=== PATIENT | female | born 1975 | race Caucasian/White ===

== ENCOUNTER 2025-04-24 10:25 | Outpatient (CLI) | payer BC, SELFPAY ==
[2025-04-25 18:05] LABS: HPV Source Cervix
== END 2025-04-24 10:26 | disposition home or self-care (01) ==
PROVIDERS: Visit Provider Physician Assistant
DX: Z12.4 Encounter for screening for malignant neoplasm of cervix (principal); Z11.51 Encounter for screening for human papillomavirus (HPV)
CPT/HCPCS: 87624; 87625; 88141; 88142

== ENCOUNTER 2025-05-08 08:00 | Outpatient (CLI) | payer BC, SELFPAY ==
--- NOTE | 2025-05-08 08:15 | CRLHL7_ITS ---
For Patients: As a result of the Century Cures Act, medical imaging exams and procedure reports are released immediately into your electronic medical record. You may view this report before your referring provider. If you have questions, please contact your health care provider. INDICATION: Abnormal uterine and vaginal bleeding COMPARISON: None. TECHNIQUE: 2D colindres-scale and color Doppler images were acquired of the pelvis using a transabdominal and transvaginal approach. Transvaginal imaging performed to better visualize the endometrial stripe and ovaries. FINDINGS: Left fundal intramural fibroid measures 1.9 x 1.6 x 1.9 cm. Uterus measures 8.4 cm in length by 3.3 cm in AP diameter by 4.5 cm in transverse dimension. The endometrium measures 4 millimeters. Hyperechoic focus associated with the endometrium measures 5 x 3 x 4 millimeters. No endometrial fluid. The right ovary measures 2.9 x 1.8 x 2.6 cm in size and the left ovary measures 3.2 x 2.0 x 2.3 cm. The ovaries demonstrate normal arterial and venous blood flow on color Doppler analysis. There are no suspicious fluid collections within the cul-de-sac. Benign cyst within the right ovary is present which measures 1.6 cm. Thin curvilinear septations noted without internal blood flow. IMPRESSION: Endometrial thickness 4 millimeters. A possible endometrial polyp measuring 5 millimeters. Benign right ovarian cyst measures 1.6 cm. Left fundal intramural fibroid measures 1.9 cm. Dictated by Trip Nix MD @ 05/08/2025 12:45:45 PM (Electronically Signed)
== END 2025-05-08 08:01 | disposition home or self-care (01) ==
LOC: US 08:00
PROVIDERS: Visit Provider Obstetrics & Gynecology
DX: N93.9 Abnormal uterine and vaginal bleeding, unspecified (principal); R93.89 Abnormal findings on diagnostic imaging of other specified body structures; N83.201 Unspecified ovarian cyst, right side; D25.1 Intramural leiomyoma of uterus
CPT/HCPCS: 76830; 76856

== ENCOUNTER 2025-06-29 08:48 | Outpatient (CLI) | payer BC, SELFPAY | END 2025-06-29 08:49 | disposition home or self-care (01) | PROVIDERS: PCP Family Medicine; Visit Provider Family Medicine | DX: Z01.818 Encounter for other preprocedural examination (principal); R73.03 Prediabetes | CPT/HCPCS: 80048; 80061; 85025 ==

== ENCOUNTER 2025-07-11 06:01 | Day surgery (SDC) | payer BC, SELFPAY ==
[2025-07-11 06:25] VITALS: BP 177/104; PULSE 80; RESP 20; TEMP 36.8; O2SAT 95
[2025-07-11 06:26] VITALS: BMI 50.1
[2025-07-11 06:37] LABS: Ur HCG Qualitative* Negative (Negative)
[2025-07-11 06:39] LABS: Hemoglobin* 13.8 gm/dL (12.0-16.0)
[2025-07-11] MEDS: LACTATED RINGERS 500 ML 500 ML 100 ML IV (06:40)
[2025-07-11] MEDS: SODIUM CHLORIDE 0.9 % (FLUSH) 10 ML SYRINGE IVF (06:44)
--- NOTE | 2025-07-11 07:11 | W.PM.H&PU ---
History & Physical Update History & Physical Update H&P Reviewed and patient assessed: No changes noted
[2025-07-11] MEDS: BUPIVACAINE 0.5% 30 ML INJECTION (07:47)
--- NOTE | 2025-07-11 07:49 | P.ANES_ITS ---
Anesthesia Charges Start Date/Time Anesthesia Start Date: 07/11/25 Anesthesia Start Time: 07:20 Stop Date/Time Anesthesia Stop Date: 07/11/25 Anesthesia Stop Time: 08:08 Coding CPT Codes CPT Codes: ANESTH HYSTEROSCOPE/GRAPH - 92878 ([id number]) P3 - PATIENT W/SEVERE SYS DISEASE, QK - PNEUMATIC SYSTEMS OPERATOR 2-4 CNCRNT ANES PROC, QX - RN HOME CARE SVC W/ MD MED DIRECTION
--- NOTE | 2025-07-11 07:49 | W.ANESCHARGE ---
Anesthesia Charges Start Date/Time Anesthesia Start Date: 07/11/25 Anesthesia Start Time: 07:20 Stop Date/Time Anesthesia Stop Date: 07/11/25 Anesthesia Stop Time: 08:08 Coding CPT Codes CPT Codes: ANESTH HYSTEROSCOPE/GRAPH - 68640 ([id number]) P3 - PATIENT W/SEVERE SYS DISEASE, QK - SCHOOL LIBRARY MEDIA SPECIALIST 2-4 CNCRNT ANES PROC, QX - FINISH MACHINE TENDER SVC W/ MD MED DIRECTION
--- NOTE | 2025-07-11 08:01 | P.GYNPRC_ITS ---
Procedure Note Date of procedure: 07/11/25 Will [facility] bill your pro fee for this procedure?: Yes Pre-op diagnosis: Abnormal uterine bleeding, suspected endometrial polyps Post-op diagnosis: Same Procedure: Hysteroscopy, dilation and curettage Complications: None Surgeon: Francesco Gabriel MD Estimated blood loss (mL): 5 IV fluids (mL): 300 Urine Output (mL): 100 Pathology: specimen obtained, sent to pathology (Endometrial curettings) Condition: stable Disposition: same day Findings: Findings: Speculum exam: cervix anterior lip has a triangle shape. Otherwise, no gross lesions or abnormal discharge noted. Intrauterine cavity: Bilateral cornual openings seen, multiple polypoid lesions in the endometrium. Uterine sound:8cm. Procedure Description: Patient was taken to the OR were MAC anesthesia was administered without difficulty. She was placed in the dorsal lithotomy position with Preston type stirrups. Patient was then prepared and draped in the normal sterile fashion. A bivalved speculum was inserted in the posterior aspect of the vagina. 0.5% Marcaine was injected at 2 and 11 o'clock a total of about 9mL utilized. A single-tooth tenaculum was used to grasp the anterior lip of the cervix. The cervical os was sequentially dilated to accommodate the 5 mm TrueClear hysteroscope using Hegar dilators. A 5 mm 30 degree TrueClear hysteroscope was introduced under direct visualization, and the uterus was distended with normal saline. Findings as above. Soft tissue incisor blade from TrueClear hysteroscope system was introduced under direct visualization and endometrial curettings performed with removal of polypoid lesions. Hysteroscope removed under direct visualization. The uterus was carefully sounded to 8 cm. Mirena IUD was placed without difficulty, strings were cut and left about 3 -4 cm long. Tenaculum was removed from the cervix and good hemostasis was noted at puncture sites. Patient tolerated the procedure well. Instrument and sponge counts were correct x2. The patient was awakened from MAC anesthesia and taken to the recovery room in a stable condition. The patient will go home after recovering from anesthesia and meeting all the criteria for discharge. She was given instruction regarding follow-up visit in 2 weeks at [facility] and instructions for pain medication. Fluid deficit: 180mL
--- NOTE | 2025-07-11 08:04 | SUR.OPER ---
Hysteroscopy fluid total of 615 ml with fluid deficit of [address] Robe Forde aware of fluid deficit.
[2025-07-11 08:05] VITALS: BP 169/102; PULSE 86; RESP 20; TEMP 36.6; O2SAT 95
--- NOTE | 2025-07-11 08:08 | SUR.OPER ---
surgeon straight cathed patient, 100 ml urine output.
--- NOTE | 2025-07-11 08:12 | P.ANES_ITS ---
Anesthesia Charges Start Date/Time Anesthesia Start Date: 07/11/25 Anesthesia Start Time: 07:20 Stop Date/Time Anesthesia Stop Date: 07/11/25 Anesthesia Stop Time: 08:08 Coding CPT Codes CPT Codes: ANESTH HYSTEROSCOPE/GRAPH - 04126 ([id number]) P3 - PATIENT W/SEVERE SYS DISEASE, QK - WET MIXER 2-4 CNCRNT ANES PROC
--- NOTE | 2025-07-11 08:12 | W.ANESCHARGE ---
Anesthesia Charges Start Date/Time Anesthesia Start Date: 07/11/25 Anesthesia Start Time: 07:20 Stop Date/Time Anesthesia Stop Date: 07/11/25 Anesthesia Stop Time: 08:08 Coding CPT Codes CPT Codes: ANESTH HYSTEROSCOPE/GRAPH - 76814 ([id number]) P3 - PATIENT W/SEVERE SYS DISEASE, QK - LUGGAGE ATTENDANT 2-4 CNCRNT ANES PROC
[2025-07-11 08:20] VITALS: BP 179/113; PULSE 83; RESP 20; O2SAT 96
[2025-07-11 08:35] VITALS: BP 174/109; PULSE 80; RESP 20; TEMP 36.8; O2SAT 94
[2025-07-11 08:50] VITALS: BP 185/113; PULSE 75; RESP 20; O2SAT 95
[2025-07-11 09:05] VITALS: BP 188/111; PULSE 78; RESP 20; O2SAT 96
--- NOTE | 2025-07-11 09:22 | SUR.PHASEII ---
Anesthesia aware of elevated bp. advised pt to consult with her primary regarding it. she is asymptomatic
== END 2025-07-11 09:35 | disposition home or self-care (01) ==
PROVIDERS: PCP Family Medicine; Visit Provider Obstetrics & Gynecology
PROC: 0UDB8ZZ Extraction of Endometrium, Via Natural or Artificial Opening Endoscopic (ICD-10-PCS; CPT 58558; principal; 2025-07-11 07:15)
DX: N93.8 Other specified abnormal uterine and vaginal bleeding (principal); N84.0 Polyp of corpus uteri
CPT/HCPCS: 58558; 00952; 36415; 81025; 85018; 88305; A9270; C1782; J0665; J1100; J2250; J2405; J2704; J3010; J3490; J7120; J7298